=== PATIENT | female | born 1990 | race Hispanic/Latino ===

== ENCOUNTER 2022-04-30 08:29 | Inpatient (IN) | payer BC, OTHER ==
[~2022-04-30 08:29] MED LIST: Bupivacaine 0.25% HCL 30 ML VIAL ONE; Bupivacaine HCl 0.5%/Epinephrine 1:200,000/PF 30 ml Vial ONE
[2022-04-30] MEDS ORDERED: Docusate 100 MG CAP PO PRN (08:42)
[2022-04-30] MEDS ORDERED: Ibuprofen 800 MG TAB PO PRN (08:42)
[2022-04-30] MEDS ORDERED: HYDROcodone/Acetaminophen 5/325 mg Tablet PO PRN ×2 (08:42)
[2022-04-30] MEDS ORDERED: Diphenoxylate HCl/Atropine Tablet PO PRN ×2 (08:42)
[2022-04-30] MEDS ORDERED: Lidocaine 1% (PF) 30 ML VIAL SC PRN (08:42)
[2022-04-30] MEDS ORDERED: hydrALAZINE 20 MG/ML VIAL SLOW IVP PRN (08:42)
[2022-04-30] MEDS ORDERED: Promethazine HCl 25 MG/ML VIAL IM PRN ×2 (08:42→10:00)
[2022-04-30] MEDS ORDERED: Butorphanol Tartrate 1 MG/ML VIAL SLOW IVP PRN (08:42)
[2022-04-30] MEDS ORDERED: Misoprostol 200 MCG TAB PR PRN (08:42)
[2022-04-30] MEDS ORDERED: Ondansetron PF 4 MG/2 ML Vial IVP PRN ×2 (08:42→10:00)
[2022-04-30] MEDS ORDERED: NS w/ Oxytocin 30 units 500 ML IV SCH ×2 (08:45)
[2022-04-30 09:23] VITALS: BMI 37.5
[2022-04-30 09:35] LABS: Hemoglobin 11.9 g/dL (12.0-15.5); Mean Corpuscular HGB CONC 34.4 g/dL (32.0-36.0); Mean Corpuscular Volume 78.5 fl (81.6-98.3); Mean Platelet Volume 10.9 fl (7.4-10.4); Platelet Count 252 10x3/uL (150-450); RBC Distribution Width 15.9 % (11.5-14.5); Red Blood Cell (RBC) Count 4.41 10x6/uL (3.90-5.03)
[2022-04-30] MEDS ORDERED: Fentanyl 2 mcg/Bup 0.1% Cadd 100 ML ONE (09:41)
[2022-04-30] MEDS ORDERED: ePHEDrine Sulfate 50 MG/10 ML VIAL SLOW IVP PRN (10:00)
[2022-04-30] MEDS ORDERED: Naloxone HCl 0.4 mg/ml Vial IVP PRN ×2 (10:00)
[2022-04-30] MEDS ORDERED: Moisturizing Cream (Eucerin) 113 GM JAR TOP PRN (10:00)
[2022-04-30] MEDS ORDERED: Acetaminophen 325 MG TAB PO PRN (10:00)
[2022-04-30] MEDS ORDERED: Communication Order-Pharmacy FS SCH (10:00)
[2022-04-30] MEDS ORDERED: diphenhydrAMINE 50 MG/ML VIAL IVP PRN (10:00)
[2022-04-30 10:09] LABS: SARS-CoV-2 NAA Rapid Test Not Detected (NotDetected)
[2022-04-30 10:12] LABS: Syphilis Antibody Nonreactive (Nonreactive); Syphilis Antibody Index 0.05 S/CO (<1.00 Non-Reactive)
[2022-04-30 10:15] LABS: HBSAg Index 0.22 S/CO (0-0.99); HIV (1/2) Antibody/Antigen Non-Reactive (NonReactive); HIV 1/2 INDEX 0.07 S/CO (<1.00); Hep B Surf Ag Non-Reactive S/CO (NonReactive)
[2022-04-30] MEDS ORDERED: Lactated Ringer's 500 ML IV PRN (10:16)
[2022-04-30] MEDS: Fentanyl 2 mcg/Bupivacaine 0.1% Cassette 100 ML EPIDURAL SCH ×2 (10:21→17:58)
[2022-04-30] MEDS: Lactated Ringer's 1,000 ML IV SCH (10:25)
[2022-04-30] MEDS: Acetaminophen 500 MG TAB PO PRN ×3 (13:32→20:03)
[2022-04-30] MEDS: Ampicillin 2 GM in Sodium Chloride 0.9% 100 ML IVPB SCH ×2 (14:29→20:04)
[2022-04-30] MEDS ORDERED: Gentamicin Sulfate 360 MG in Sodium Chloride 0.9% 100 ML IVPB SCH (15:00)
[2022-05-01] MEDS ORDERED: Fentanyl 2 mcg/Bup 0.1% Cadd 100 ML ONE ×2 (00:39→07:18)
[2022-05-01] MEDS: Ampicillin 2 GM in Sodium Chloride 0.9% 100 ML IVPB SCH ×2 (02:54→19:58)
[2022-05-01] MEDS ORDERED: Ampicillin 2 GM VIAL ONE (07:17)
[2022-05-01] MEDS ORDERED: Misoprostol 200 MCG TAB VAG PRN (10:01)
[2022-05-01] MEDS ORDERED: Preparation H Ointment 28 GM TUBE PR PRN (10:01)
[2022-05-01] MEDS ORDERED: Ondansetron PF 4 MG/2 ML Vial IVP PRN (10:01)
[2022-05-01] MEDS ORDERED: diphenhydrAMINE 25 MG CAP PO PRN (10:01)
[2022-05-01] MEDS ORDERED: Milk Of Magnesia 30 ML UDCUP PO PRN (10:01)
[2022-05-01] MEDS ORDERED: Zolpidem Tartrate 5 MG TAB PO PRN (10:01)
[2022-05-01] MEDS ORDERED: Lanolin Ointment 7 GM TUBE TOP PRN (10:01)
[2022-05-01] MEDS ORDERED: Benzocaine-Menthol 82.5 ML CAN TOP PRN (10:01)
[2022-05-01] MEDS ORDERED: Bisacodyl 10 MG SUPP PR PRN (10:01)
[2022-05-01] MEDS ORDERED: Boostrix 0.5 ML (Tdap) VIAL (>/=7 yrs of age) IM ONE (10:01)
[2022-05-01] MEDS ORDERED: hydrALAZINE 20 MG/ML VIAL SLOW IVP PRN (10:01)
[2022-05-01] MEDS ORDERED: HYDROcodone/Acetaminophen 5/325 mg Tablet PO PRN ×2 (10:01)
[2022-05-01] MEDS ORDERED: Witch Hazel-Glycerin 1 EACH JAR TOP PRN (10:02)
[2022-05-01] MEDS ORDERED: Acetaminophen 325 MG TAB PO PRN (10:02)
[2022-05-01] MEDS ORDERED: NS w/ Oxytocin 30 units 500 ML IV SCH (10:15)
[2022-05-01] MEDS: Ibuprofen 800 MG TAB PO SCH ×2 (16:06→22:56)
[2022-05-01] MEDS: Ferrous Sulfate 325 MG TAB PO SCH (18:44)
[2022-05-01] MEDS: Lactated Ringer's 1,000 ML IV SCH (19:55)
[2022-05-01] MEDS: Docusate 100 MG CAP PO SCH (22:56)
[2022-05-02 03:30] LABS: Hemoglobin 9.6 g/dL (12.0-15.5); Mean Corpuscular HGB CONC 34.3 g/dL (32.0-36.0); Mean Corpuscular Hemoglobin 26.8 pg (27.0-33.0); Mean Corpuscular Volume 78.2 fl (81.6-98.3); Mean Platelet Volume 10.7 fl (7.4-10.4); Platelet Count 210 10x3/uL (150-450); Red Blood Cell (RBC) Count 3.58 10x6/uL (3.90-5.03)
[2022-05-02] MEDS: Ibuprofen 800 MG TAB PO SCH ×3 (05:29→21:21)
[2022-05-02] MEDS: Ferrous Sulfate 325 MG TAB PO SCH ×2 (08:44→17:48)
[2022-05-02] MEDS: Prenatal Vitamin 1 TAB PO SCH (08:44)
[2022-05-02] MEDS: Docusate 100 MG CAP PO SCH ×2 (08:44→21:21)
[2022-05-03] MEDS: Ibuprofen 800 MG TAB PO SCH (05:04)
[2022-05-03 07:46] VITALS: BP 98/62; TEMP 97.6
[2022-05-03] MEDS: Ferrous Sulfate 325 MG TAB PO SCH (08:23)
[2022-05-03] MEDS: Prenatal Vitamin 1 TAB PO SCH (08:23)
[2022-05-03] MEDS: Docusate 100 MG CAP PO SCH (08:23)
== END 2022-05-03 10:05 | disposition home or self-care (01) | DRG 807 ==
LOC: CSHLD 08:29 → CSHPP 05-01 13:02
PROVIDERS: ADMIT Obstetrics & Gynecology; ATTEND Obstetrics & Gynecology
PROC: 10E0XZZ Delivery of Products of Conception, External Approach (ICD-10-PCS; principal; 2022-05-01)
DX: O99.02 Anemia complicating childbirth (principal); Z37.0 Single live birth; Z20.822 Contact with and (suspected) exposure to COVID-19; Z3A.38 38 weeks gestation of pregnancy; D64.9 Anemia, unspecified
CPT/HCPCS: 36415; 51702; 85027; 86780; 86850; 86900; 86901; 87340; 87389; 87804; J0290; J1200; J1580; J2405; J2590; J3490; J7120; S0020; U0002